=== PATIENT | female | born 1975 | race Caucasian/White ===

== ENCOUNTER 2022-06-01 08:30 | Emergency (ER) | payer OTHER, SELFPAY ==
[2022-06-01 08:42] VITALS: BP 116/84; PULSE 92; RESP 16; TEMP 36.2; O2SAT 98
--- NOTE | 2022-06-01 09:04 | ED.URI ---
HPI - URI/Sore Throat General Stated Complaint: back pressure fever cough throat Time Seen by Provider: 06/01/22 09:23 Source: patient and RN notes reviewed Mode of arrival: ambulatory Limitations: no limitations History of Present Illness HPI Narrative: 47-year-old female presents with concern for back pressure, aching, fever, cough, sore throat. Reports she has been taking ibuprofen. She denies dysuria, frequency, urgency. She denies hematuria, flank pain. Denies known sick contacts. She denies abdominal pain, perianal anesthesia, loss of bowel or bladder function, weakness in any extremity. MD elicited complaint: cough and sore throat Related Data Home Medications Medication Instructions Recorded Confirmed semaglutide 14 mg tablet (Rybelsus) 14 mg PO DAILY 06/01/22 06/01/22 spironolactone 25 1 tablet PO DAILY 06/01/22 06/01/22 mg-hydrochlorothiazide 25 mg tablet Allergies Allergy/AdvReac Type Severity Reaction Status Date / Time No Known Allergies Allergy Verified 06/01/22 09:13 Review of Systems Review of Systems: CONSTITUTIONAL: Reports malaise, fever. EYES: Denies visual changes, redness, or discharge. ENT: Reports rhinorrhea, congestion, sore throat. Denies sinus pain, otalgia CARDIOVASCULAR: Denies chest pain, palpitations, or edema. RESPIRATORY: Reports cough. Denies dyspnea. GASTROINTESTINAL: Denies abdominal pain, nausea, vomiting, diarrhea SKIN: Denies rash or itching. MUSCULOSKELETAL: Reports myalgia. Reports back ?pressure? NEUROLOGIC: Denies headache. All systems reviewed & are unremarkable except as noted in HPI and below PMFSH Comments At time of signature, agree with nursing past medical, surgical, social and family history. There is no relevant family history pertinent to the presenting complaint Exam Narrative: GENERAL: Well-appearing, well-nourished, and in no acute distress. HEAD: Normocephalic EYES: PERRLA, conjunctivae clear ENT: Nares clear, turbinates edematous and erythematous, clear discharge. Mucous membranes moist. TM pearly novoa with sharp light reflex bilaterally; no tragal tenderness. Oropharynx not erythematous without lesions. Tonsils not enlarged and without exudate, no drooling, no hoarseness, no trismus, uvula midline. NECK: Supple. No lymphadenopathy CHEST: Clear to auscultation, breath sounds equal. No wheezing, rhonchi, rales, or stridor. No respiratory distress, speaks in full sentences. HEART: Regular rate and rhythm. No murmur heard. ABDOMEN: Soft, nontender, nondistended, normal active bowel sounds, no palpable or pulsatile masses. No CVA tenderness MUSCULOSKELETAL: Normal range of motion and strength in all extremities; 5/5 strength with hip flexion and extension, dorsiflexion and extension, knee flexion and extension, plantar flexion and extension. Normal sensation in dermatomal distributions with sensitivity to light touch and pain. No midline back tenderness to palpation. No paraspinal tenderness. Transfers from lying to sitting to standing. SKIN: Warm, dry, no rash. No ecchymosis, erythema, open wounds to back. NEURO: No focal deficits. Alert and oriented x3. Reflexes intact. Normal gait. PSYCH: Normal mood and affect Course Course Emergency Course: Patient is aware of diagnosis, understands and agrees to treatment plan. Anticipatory guidance given. Patient agrees to follow-up as directed and is aware of reasons to seek care at the emergency department. Portions of this record may have been created with voice recognition software Level of Care: Express Care Visit Vital Signs Vital signs: Vital Signs Temperature 97.2 F L 06/01/22 08:42 Pulse Rate 92 06/01/22 08:42 Respiratory Rate 16 06/01/22 08:42 Blood Pressure 116/84 06/01/22 08:42 Pulse Oximetry 98 06/01/22 08:42 Oxygen Delivery Room Air 06/01/22 08:42 Temperature 97.2 F L 06/01/22 08:42 Pulse Rate 92 06/01/22 08:42 Respiratory Rate 16 06/01/22 08:42 Blood Pressur
== END 2022-06-01 10:05 | disposition home or self-care (01) ==
PROVIDERS: Emergency Provider Nurse Practitioner; PCP Internal Medicine Geriatric Medicine
DX: M54.9 Dorsalgia, unspecified (principal); R05.9 Cough, unspecified; R50.9 Fever, unspecified; J02.9 Acute pharyngitis, unspecified; Z20.822 Contact with and (suspected) exposure to COVID-19
CPT/HCPCS: 81003; 87426; 99213; C9803; G0463

== ENCOUNTER 2023-03-22 16:33 | Emergency (ER) | payer OTHER, SELFPAY ==
--- NOTE | 2023-03-22 16:40 | ED.SKABFB ---
HPI - Skin/Abscess/Foreign Bdy General Chief complaint: Skin/Abscess/Foreign Body Stated complaint: Skin Sore/Left Elbow Time Seen by Provider: 03/22/23 16:40 Source: patient Mode of arrival: ambulatory Limitations: no limitations History of Present Illness HPI narrative: Cynthia is a 48-year-old female patient presenting to the clinic today with complaints a skin sore to her left elbow x1 day. She reports she noticed some stinging to her left elbow yesterday and today it had become red and swollen with what appears to be a lesion that is becoming a pustule. No history of Staph or MRSA infections in the past. No known injury or insect bite to the affected area. No known fever or chills. Related Data Home Medications Medication Instructions Recorded Confirmed semaglutide 14 mg tablet (Rybelsus) 14 mg PO DAILY 06/01/22 03/22/23 spironolactone 25 1 tablet PO DAILY 06/01/22 03/22/23 mg-hydrochlorothiazide 25 mg tablet Allergies Allergy/AdvReac Type Severity Reaction Status Date / Time No Known Allergies Allergy Verified 03/22/23 16:50 Review of Systems Review of Systems: Pertinent positives per HPI. Patient denies any fever, chills, headache, visual changes, dizziness, cough, runny nose, sore throat, shortness of breath, chest pain, palpitations, nausea, vomiting, diarrhea, constipation, abdominal pain, or any urinary issues. PMFSH Comments At the time of my signature, I reviewed and agree with the nursing past medical, surgical, social, and family history. There is no relevant family history pertinent to the patient complaint. Exam Narrative: General: Well-developed, well nourished, in no apparent distress Head: Normocephalic, atraumatic. Cardio: Regular rate and rhythm, s1 and s2 normal, no murmur appreciated. Resp: Clear to auscultation bilaterally, no rhonchi, rales, wheezing or rubs. Integumentary: [place], warm, and dry, redness with induration measuring 8 x 9 cm with a 0.5 cm lesion in the middle, tender to palpation with erythema Course Course Emergency Course: Portions of this record may have been created with voice recognition software. Level of Care: Express Care Visit Vital Signs Vital signs: Vital signs reviewed MDM - Skin/Abscess/Foreign Bdy MDM Narrative Medical decision making narrative: At the time of visit patient is resting on the exam table. I suspect patient has a bacterial skin infection to the left elbow. Will place patient on doxycycline. Supportive measures were discussed with the patient she voiced understanding discharge instructions agrees to treatment plan. Differential Diagnosis Differential diagnosis: Likely abscess of skin or subcutaneous tissue, urticaria, herpes zoster, allergic reaction to drug, cellulitis, eczema, insect bites, impetigo and contact dermatitis Discharge Plan Discharge Clinical Impression: Bacterial skin infection of elbow Patient Disposition: Home, Self-Care Condition: Stable Instructions: Antibiotic Form, Wound Infection (ED) Additional Instructions: I suspect you have a bacterial skin infection to the left elbow Take Doxycycline as prescribed Keep wound clean and dry May apply warm compresses to the affected area for 15-20 minutes at a time- on for 20 and off for 20 Take Tylenol/Motrin as needed for pain Follow-up with your PCP in 3-5 days if symptoms persist or sooner if they worsen Prescriptions: New doxycycline hyclate 100 mg capsule 100 mg PO BID 10 Days Qty: 20 0RF No Action spironolacton-hydrochlorothiaz 25-25 mg tablet 1 tablet PO DAILY Rybelsus 14 mg tablet 14 mg PO DAILY Follow-up/Referrals: Ashlyn,MD Daniela [Primary Care Provider] - Time of Disposition: 16:47 Quality NIHSS Nursing Documentation ED NIHSS nursing documentation: reviewed/agree
[2023-03-22 16:47] VITALS: BP 118/85; PULSE 98; RESP 18; TEMP 36.7; O2SAT 98
== END 2023-03-22 16:50 | disposition home or self-care (01) ==
PROVIDERS: Emergency Provider Nurse Practitioner Family; PCP Internal Medicine Geriatric Medicine
DX: L08.9 Local infection of the skin and subcutaneous tissue, unspecified (principal); B96.89 Other specified bacterial agents as the cause of diseases classified elsewhere; Z79.899 Other long term (current) drug therapy
CPT/HCPCS: 99213; G0463